=== PATIENT | female | born 1995 | race Caucasian/White ===

== ENCOUNTER 2023-04-22 07:21 | Inpatient (IN) | payer OTHER ==
[2023-04-22] MEDS ORDERED: ePHEDrine Sulfate 50 MG/10 ML VIAL ONE (08:00)
[2023-04-22 08:13] VITALS: BMI 38.7
[2023-04-22 08:24] LABS: Fetal Membranes Rupture RUPTURE DETECTED (No Rupture)
[2023-04-22] MEDS ORDERED: Lidocaine 1% (PF) 30 ML VIAL SC PRN (09:00)
[2023-04-22] MEDS ORDERED: hydrALAZINE 20 MG/ML VIAL SLOW IVP PRN (09:02)
[2023-04-22] MEDS ORDERED: Ondansetron PF 4 MG/2 ML Vial IVP PRN (09:02)
[2023-04-22] MEDS ORDERED: Carboprost 250 MCG/ML AMP IM PRN (09:02)
[2023-04-22] MEDS ORDERED: Acetaminophen 500 MG TAB PO PRN (09:02)
[2023-04-22] MEDS ORDERED: Tranexamic Acid 1,000 MG/10 ML VIAL IVP PRN (09:02)
[2023-04-22] MEDS ORDERED: Promethazine HCl 25 MG/ML VIAL IM PRN (09:02)
[2023-04-22] MEDS ORDERED: Diphenoxylate HCl/Atropine Tablet PO PRN (09:02)
[2023-04-22] MEDS ORDERED: Misoprostol 200 MCG TAB PR PRN (09:02)
[2023-04-22] MEDS ORDERED: Oxytocin 30 units/NS 500 ML 500 ML IV SCH ×2 (09:15→10:15)
[2023-04-22] MEDS ORDERED: Penicillin G Potassium 5 MILL.UNITS in Sodium Chloride 0.9% 100 ML IVPB SCH (09:15)
[2023-04-22 10:27] LABS: Hematocrit 30.6 % (34.9-44.5); Hemoglobin 10.3 g/dL (12.0-15.5); Mean Corpuscular HGB CONC 33.7 g/dL (32.0-36.0); Mean Corpuscular Hemoglobin 28.6 pg (27.0-33.0); Mean Platelet Volume 10.3 fl (7.4-10.4); Platelet Count 299 10x3/uL (150-450); RBC Distribution Width 13.6 % (11.5-14.5); White Blood Cell (WBC) Count 13.3 10x3/uL (3.5-10.5)
[2023-04-22 11:17] LABS: Syphilis Antibody Nonreactive (Nonreactive); Syphilis Antibody Index 0.03 S/CO (<1.00 Non-Reactive)
[2023-04-22 11:18] LABS: HBSAg Index 0.12 S/CO (0-0.99); Hep B Surf Ag - L&D Non-Reactive S/CO (NonReactive)
[2023-04-22] MEDS: Misoprostol 100 MCG TAB PO SCH ×2 (11:51→15:37)
[2023-04-22] MEDS: Penicillin G 2.5 MILL.units 2.5 MILL.UNITS in Premix Bag 1 BAG IVPB SCH ×3 (13:59→22:30)
[2023-04-22] MEDS ORDERED: fentaNYL 50 mcg/mL 1 mL Vial SLOW IVP PRN (22:54)
[2023-04-23] MEDS ORDERED: fentaNYL/Ropivacaine Epidural 100 ML ONE (01:24)
[2023-04-23] MEDS ORDERED: Naloxone HCl 0.4 mg/ml Vial IVP PRN ×2 (01:31)
[2023-04-23] MEDS ORDERED: Acetaminophen 325 MG TAB PO PRN (01:31)
[2023-04-23] MEDS ORDERED: ePHEDrine Sulfate 50 MG/10 ML VIAL SLOW IVP PRN (01:31)
[2023-04-23] MEDS ORDERED: Moisturizing Cream (Eucerin) 113 GM JAR TOP PRN (01:31)
[2023-04-23] MEDS ORDERED: Lactated Ringer's 500 ML IV PRN (01:31)
[2023-04-23] MEDS ORDERED: diphenhydrAMINE 50 MG/ML VIAL IVP PRN (01:31)
[2023-04-23] MEDS ORDERED: Ondansetron PF 4 MG/2 ML Vial IVP PRN ×2 (01:31→09:43)
[2023-04-23] MEDS ORDERED: Promethazine HCl 25 MG/ML VIAL IM PRN ×2 (01:31→09:43)
[2023-04-23] MEDS ORDERED: fentaNYL 2 mcg/Ropivacaine 0.2% Epidural 100 ML CADD EPIDURAL SCH (01:45)
[2023-04-23] MEDS ORDERED: Communication Order-Pharmacy FS SCH (01:45)
[2023-04-23] MEDS: Lactated Ringer's 1,000 ML IV SCH ×3 (02:01→09:49)
[2023-04-23] MEDS: Penicillin G 2.5 MILL.units 2.5 MILL.UNITS in Premix Bag 1 BAG IVPB SCH ×3 (02:20→09:49)
[2023-04-23] MEDS ORDERED: Milk Of Magnesia 30 ML UDCUP PO PRN (09:43)
[2023-04-23] MEDS ORDERED: Boostrix 0.5 ML (Tdap) VIAL (>/=7 yrs of age) IM ONE (09:43)
[2023-04-23] MEDS ORDERED: Bisacodyl 10 MG SUPP PR PRN (09:43)
[2023-04-23] MEDS ORDERED: HYDROcodone/Acetaminophen 5/325 mg Tablet PO PRN ×2 (09:43)
[2023-04-23] MEDS ORDERED: hydrALAZINE 20 MG/ML VIAL SLOW IVP PRN (09:43)
[2023-04-23] MEDS ORDERED: Preparation H Ointment 28 GM TUBE PR PRN (09:43)
[2023-04-23] MEDS ORDERED: Benzocaine-Menthol 82.5 ML CAN TOP PRN (09:43)
[2023-04-23] MEDS ORDERED: Lanolin Ointment 7 GM TUBE TOP PRN (09:43)
[2023-04-23] MEDS ORDERED: diphenhydrAMINE 25 MG CAP PO PRN (09:43)
[2023-04-23] MEDS: Misoprostol 100 MCG TAB PO SCH ×2 (09:48→09:49)
[2023-04-23] MEDS ORDERED: Docusate 100 MG CAP PO SCH (10:00)
[2023-04-23] MEDS ORDERED: Ferrous Sulfate 325 MG TAB PO SCH (10:00)
[2023-04-23] MEDS ORDERED: Prenatal Vitamin 1 TAB PO SCH (10:00)
[2023-04-23] MEDS: Ibuprofen 800 MG TAB PO SCH ×2 (12:57→21:23)
[2023-04-23] MEDS: Ferrous Sulfate 325 MG TAB PO SCH (17:02)
[2023-04-23] MEDS: Docusate 100 MG CAP PO SCH (21:23)
[2023-04-24] MEDS: Ibuprofen 800 MG TAB PO SCH ×3 (04:43→21:35)
[2023-04-24] MEDS: Ferrous Sulfate 325 MG TAB PO SCH ×2 (07:23→15:09)
[2023-04-24] MEDS: Prenatal Vitamin 1 TAB PO SCH (07:36)
[2023-04-24] MEDS: Docusate 100 MG CAP PO SCH ×2 (07:36→21:35)
[2023-04-25] MEDS: Ibuprofen 800 MG TAB PO SCH ×2 (05:27→13:59)
[2023-04-25 07:42] VITALS: BP 137/83; TEMP 97.7
[2023-04-25] MEDS: Docusate 100 MG CAP PO SCH (07:44)
[2023-04-25] MEDS: Prenatal Vitamin 1 TAB PO SCH (07:47)
[2023-04-25] MEDS: Ferrous Sulfate 325 MG TAB PO SCH ×2 (07:47→14:36)
== END 2023-04-25 18:45 | disposition home or self-care (01) | DRG 807 ==
LOC: CSHLD/OP 07:21 → CSHLD 08:36 → CSHPP 04-23 09:00
PROVIDERS: ADMIT Student in an Organized Health Care Education/Training Program; ATTEND Student in an Organized Health Care Education/Training Program
PROC: 10E0XZZ Delivery of Products of Conception, External Approach (ICD-10-PCS; principal; 2023-04-23)
PROC: 3E0P7VZ Introduction of Hormone into Female Reproductive, Via Natural or Artificial Opening (ICD-10-PCS; 2023-04-23)
PROC: 0HQ9XZZ Repair Perineum Skin, External Approach (ICD-10-PCS; 2023-04-23)
PROC: 3E033XZ Introduction of Vasopressor into Peripheral Vein, Percutaneous Approach (ICD-10-PCS; 2023-04-23)
DX: O42.02 Full-term premature rupture of membranes, onset of labor within 24 hours of rupture (principal); Z37.0 Single live birth; O24.425 Gestational diabetes mellitus in childbirth, controlled by oral hypoglycemic drugs; O70.0 First degree perineal laceration during delivery; Z3A.34 34 weeks gestation of pregnancy; Z98.890 Other specified postprocedural states; O99.344 Other mental disorders complicating childbirth
CPT/HCPCS: 36415; 36416; 51702; 84112; 85027; 86780; 86850; 86900; 86901; 87340; 99285; J2405; J2540; J2590; J3010; J3490; J7120